=== PATIENT | male | born 1990 | race Caucasian/White ===

== ENCOUNTER → 2019-09-06 14:22 | Outpatient (CLI) | payer BC, SELFPAY ==
[2019-09-06 09:49] VITALS: BMI 28.8
== END ==
PROVIDERS: Referring Provider Physician Assistant; Visit Provider Physician Assistant
DX: J02.9 Acute pharyngitis, unspecified (principal)
CPT/HCPCS: 87070

== ENCOUNTER 2022-07-12 14:15 | Emergency (ER) | payer BC, SELFPAY ==
[2022-07-12 14:15] VITALS: BP 150/92; PULSE 82; RESP 18; TEMP 36.6; O2SAT 98; BMI 37.7
--- NOTE | 2022-07-12 14:56 | CT_ITS ---
INDICATION: RIGHT FLANK AND GROIN PAIN EXAMINATION: CT Abdomen And Pelvis W/O Contrast Injection TECHNIQUE: Helically acquired images were obtained of the abdomen and pelvis without the use of IV contrast. A radiation dose optimization technique was used for this scan. Oral contrast: None. COMPARISON: None FINDINGS: Evaluation of the solid organs and vascular structures is limited without intravenous contrast. Visualized lung bases: Unremarkable Liver: Diffusely hypodense consistent with fatty liver. Gallbladder: Unremarkable Spleen: Unremarkable Pancreas: Unremarkable Adrenal Glands: Unremarkable Kidneys: Mild perinephric fat stranding on the right. Vasculature: Unremarkable GI Tract: Unremarkable Lymphadenopathy: None Peritoneum: No ascites. Bladder: Punctate dependent stone in the bladder. Reproductive organs: Unremarkable Bones/Soft tissues: No suspicious osseous or soft tissue lesions . Grade 1 anterolisthesis L5 on S1 with bilateral L5-S1 pars defects. CT/Abdomen/Pelvis without Cont IMPRESSION: No hydronephrosis or obstructing renal/ureteral stone. There is a punctate 1-2 mm stone in the bladder which most likely recently passed through the ureter. Hepatic steatosis. Grade 1 anterolisthesis L5 on S1 with bilateral L5-S1 pars defects. Electronically Signed: Gui Brown MD at 16:36 EDT ,
--- NOTE | 2022-07-12 14:56 | EX.ED.GUMALE ---
HPI History of Present Illness Chief Complaint: Flank Pain Narrative Narrative: Patient denies significant past medical history except for remote kidney stone presents with right flank pain that was sudden onset this morning, over 7 hours ago. He denies any exacerbating or alleviating factors but states he is having right flank pain radiating to his right testicle. He intermittently felt nausea but has not vomited. No fevers or chills. He states he is having difficulty urinating but denies any gross hematuria. No problems with bowel movements. No exacerbating or alleviating factors to his right flank pain. It feels sharp and stabbing, and he took ibuprofen without relief of his symptoms earlier today. He cannot find a comfortable position to sit down. [facility] Medical History Fatigue NECK AND BACK PAIN Severe headache Home Medications NK 09/06/19 [History Last Taken Unknown] Allergy/AdvReac Type Severity Reaction Status Date / Time No Known Allergies Allergy Verified 07/12/22 14:17 Social History Smoking Status: Never smoker alcohol intake: never ROS ROS ED ROS Narrative Constitutional: No fever, no chills. HEENT: No sore throat. No neck pain. No loss of vision. No rhinorrhea. Cardiovascular: No chest pain. No palpitations. No pedal edema. Respiratory: No cough, no shortness of breath. Abdominal: No abdominal pain. No nausea. No vomiting. Genitourinary: Positive dysuria. No hematuria. Right flank pain, sharp and stabbing, radiating to testicle. Musculoskeletal: No myalgias. No arthralgias. Neurologic: No headaches. No dizziness. No lightheadedness. Skin: No rash. No change in color. Psychiatric: No depression. No anxiety. EXAM Physical Exam Narrative Exam Narrative: Afebrile. Vital signs noted. HEENT: Normocephalic. Atraumatic. PERRL, EOMI. Neck soft and supple. No point tenderness or step off. Cardiovascular: Regular rate and rhythm. No murmurs, rubs, or gallops appreciated. Respiratory: No tachypnea. Lungs clear to auscultation bilaterally. Gastrointestinal: Abdomen soft, nontender, with normoactive bowel sounds. No rebound or guarding. No CVA tenderness to percussion. Neurological: Awake. Alert. Nonfocal, nonlateralizing. Skin: No rash. Normal color. No pallor. Musculoskeletal: No pedal edema. Full range of motion extremities. Const Vital Signs: 07/12/22 14:15 Temperature 97.9 F Temperature Source Temporal Pulse Rate 82 Respiratory Rate 18 Blood Pressure 150/92 H Blood Pressure Mean 111 Pulse Ox 98 Oxygen Delivery Method Room Air MDM MDM MDM Narrative Medical decision making narrative: Patient was administered normal saline at 250 mL/h and Toradol for analgesia initially. Kidney stone work-up was pursued. I will also perform chaperoned testicular examination. CBC is grossly normal with normal hemoglobin, normal WBC count, and normal platelet count. BMP is grossly unremarkable. Normal creatinine, karly BUN. Urinalysis sows 50-100 RBCs but no evidence of infection. CT of the abdomen and pelvis shows no hydronephrosis but a passed stone measuring 1-2mm in the bladder. His testicular examination showed no evidence of mass or tenderness. He was reasurred and told to continue self examinations. After toradol, his pain has improved significantly. At this point in time, I feel he can be discharged safely home with follow up to urology as needed. Return instructions to the emergency department were reviewed. Disposition is discharged home in stable condition. Clinical Impression: Right Flank Pain, Passed ureteral stone, Right testicular pain. Lab Data Attestation: I reviewed the patient's lab results. Labs: Laboratory Results - last 24 hr 07/12/22 07/12/22 07/12/22 15:46 15:46 17:35 WBC 9.1 RBC 5.19 Hgb 15.3 Hct 45.6 MCV 87.9 MCH 29.5 MCHC 33.6 RDW Std Deviation 41.7 RDW Coeff of Marcie 12.8 Plt Count 263 MPV 9.9 Immature Gran % (Auto) 0.300 Neut % (Auto) 71.2 H Lymph % (Auto) 15.7 L [place] % (Auto) 9.7 Eos % (Auto) 2.3 Baso % (Auto) 0.8 Absolute Neuts (auto) 6.5 Absolute Lymphs (auto) 1.43 Nucleated RBC % 0 Sodium 139 Potassium 4.3 Chloride 105 Carbon Dioxide 27.0 Anion Gap 7 BUN 15 Creatinine 1.18 Estim Creat Clear Calc 84.03 Est GFR (MDRD) Af Amer 92 Est GFR (MDRD) Non-Af 76 BUN/Creatinine Ratio 12.7 Glucose 105 Calcium 9.2 Urine Color Yellow Urine Clarity Clear Urine pH 7.0 Ur Specific Christmas 1.005 Urine Protein 30 H Urine Glucose (UA) Normal Urine Ketones 50 H Urine Occult Blood 250 H Urine Nitrite Negative Urine Bilirubin Negative Urine Urobilinogen Normal Ur Leukocyte Esterase 25 H Urine RBC 50-100 SEEN Urine WBC 0-5 SEEN Ur Squamous Epith Cells 0-5 SEEN Urine Bacteria RARE Urine Mucus 0 SEEN Radiography Diagnostic Testing: Clinical Impression(s) from Imaging Studies Abdomen/Pelvis CT 07/12/22 14:56 IMPRESSION: No hydronephrosis or obstructing renal/ureteral stone. There is a punctate 1-2 mm stone in the bladder which most likely recently passed through the ureter. Hepatic steatosis. Grade 1 anterolisthesis L5 on S1 with bilateral L5-S1 pars defects. Electronically Signed: Gui Brown MD at 16:36 EDT , Discharge Plan Triage Chief Complaint: Flank Pain ED Provider: Kevon Love Dx/Rx/DC Orders Instructions: ED Kidney Stone, Passed Prescriptions: No Action NK Primary Care Provider: Care Physician,No Primary Referrals: Ford Gleason MD [Med Staff - Active Staff] - As Needed Care Physician,No Primary [Primary Care Provider] - Disposition Disposition: Home, Self Care
--- NOTE | 2022-07-12 15:42 | CM.ED ---
Addendum entered by Opal Chong 07/12/22 15:43: Opal Chong MSLauryn BRYANT Original Note: SW Note SW reviewed tracker and patient has no PCP. SW spoke with patient and he confirmed he had no PCP. SW provided patient with a [facility] Healthcare Provider list for his review. No other issues or needs identified. SW remains available if needs arise.
[2022-07-12] MEDS: Ketorolac 30 MG/ML Syringe IV (15:53)
[2022-07-12] MEDS: 0.9% Normal Saline 1,000 ML 250 ML IV (15:54)
[2022-07-12 16:00] LABS: Absolute Lymphocyte Count 1.43 X10^3/uL (0.83-4.51); Absolute Neutrophil Count 6.5 X10^3/uL (2.0-7.7); Basophil# 0.07 X10^3/uL; Basophil% 0.8 % (0-1); Eosinophil# 0.21 X10^3/uL; Eosinophils% 2.3 % (0-5); Hematocrit 45.6 % (40-54); Hemoglobin 15.3 g/dL (13.0-16.5); Lymphocyte # 1.43 X10^3/ul (0.83-4.51); Lymphocyte % 15.7 % (19-41); Mean Corp Hgb Conc 33.6 g/dL (32-36); Mean Corpuscular Hgb 29.5 pg (27.0-32.0); Mean Corpuscular Volume 87.9 fL (80-94); Mean Platelet Vol. 9.9 fl (6.2-12.0); Monocyte# 0.89 X10^3/uL; Monocyte% 9.7 % (0-10); NRBC Flagged by Analyzer 0 % (0-5); Neutrophil % 71.2 % (47-70); Platelet Count 263 K/mm3 (150-450); RBC Distribution Width CV 12.8 % (11.6-14.6); RBC Distribution Width SD 41.7 fl (35.1-43.9); Red Blood Count 5.19 M/mm3 (4.6-6.2); White Blood Count 9.1 K/mm3 (4.4-11.0)
[2022-07-12 16:14] LABS: Anion Gap 7 (5-15); BUN 15 mg/dL (7-18); BUN/Creat Ratio 12.7 RATIO (10-20); Calcium,Total 9.2 mg/dL (8.5-10.1); Chloride 105 mmol/L (98-107); Creatinine, Serum 1.18 mg/dL (0.70-1.30); EST Glomerular Filtration Rate 76 mL/min (>60); Est Glom Filt Rate - Afr Amer 92 mL/min (>60); Estimated Creatinine Clearance 84.03 ml/min; Glucose 105 mg/dL (74-106); Potassium 4.3 mmol/L (3.5-5.1); Sodium Level 139 mmol/L (136-145)
[2022-07-12 16:15] VITALS: BP 132/75; PULSE 75; RESP 18; O2SAT 96
[2022-07-12 17:47] LABS: Mucous, Urine 0 SEEN /hpf (<or=2+)
[2022-07-12 17:49] LABS: Color, Urine Yellow (Yellow); Glucose, Dipstick Normal (Normal); Ketone-Dipstick 50 mg/dl (Negative); Leukocyte Esterase-Dipstick 25 /ul (Negative); Nitrite-Dipstick Negative (Negative); Occult Blood-Urine 250 /ul (Negative); Protein-Dipstick 30 mg/dl (Negative); Specific Gravity, Urine 1.005 (1.002-1.030); Urine Bilirubin Dipstick Negative (Negative); Urine Clarity Clear (Clear); Urine Urobilinogen Normal (Normal)
[2022-07-12 18:01] LABS: Bacteria RARE /hpf (None Seen); Red Blood Cells-Urine 50-100 SEEN /hpf (0-5); Squamous Epithelial Cells - UA 0-5 SEEN /hpf (0-5); White Blood Cells 0-5 SEEN /hpf (0-5)
[2022-07-12 18:15] VITALS: BP 135/80; PULSE 76; RESP 16; O2SAT 97
== END 2022-07-12 19:09 | disposition home or self-care (01) ==
PROVIDERS: Emergency Provider Emergency Medicine; Visit Provider Emergency Medicine
DX: N20.1 Calculus of ureter (principal); R10.9 Unspecified abdominal pain; N50.811 Right testicular pain
CPT/HCPCS: 74176; 80048; 81001; 85025; 96374; 99282; J7030; A4216

== ENCOUNTER → 2022-08-06 | Outpatient (CLI) | payer BC, SELFPAY ==
[2022-08-30 12:40] LABS: Size 2x2 mm; Source Not Provided
== END | disposition home or self-care (01) ==
LOC: LABSPEC 11:26
PROVIDERS: Visit Provider Urology
DX: N20.0 Calculus of kidney (principal)
CPT/HCPCS: 82360